=== PATIENT | female | born 1995 | race Asian ===

== ENCOUNTER 2018-12-02 12:13 | Emergency (ER) | payer OTHER ==
[~2018-12-02] VITALS: Ht 157.5 cm; Wt 70.3 kg
[2018-12-02 13:12] LABS: POTASSIUM 3.3 mmol/L (3.6-5.2)
[2018-12-02 13:18] LABS: PLATELET COUNT 189 K/uL (152-353)
[2018-12-02 16:10] VITALS: BP 108/62; TEMP 98.2
== END 2018-12-02 16:10 | disposition home or self-care (01) ==
LOC: ED 12:13
PROVIDERS: Emergency Medicine
DX: E16.1 Other hypoglycemia (principal); Z33.1 Pregnant state, incidental
CPT/HCPCS: 36415; 80053; 81000; 82962; 85027; 93005; 96365; 96375; 96376; 99284; J7060

== ENCOUNTER 2020-01-13 21:03 | Emergency (ER) | payer OTHER ==
[~2020-01-13] VITALS: Ht 157.5 cm; Wt 56.2 kg
[2020-01-13 21:54] LABS: POTASSIUM 3.2 mmol/L (3.6-5.2)
[2020-01-13 22:01] LABS: PLATELET COUNT 253 K/uL (152-353)
[2020-01-13 22:53] VITALS: BP 100/61; TEMP 97.8
== END 2020-01-13 22:53 | disposition home or self-care (01) ==
LOC: ED 21:03
PROVIDERS: Family Medicine
DX: A08.39 Other viral enteritis (principal)
CPT/HCPCS: 36415; 80053; 82150; 83690; 85027; 96360; 96375; 99284; J2405

== ENCOUNTER 2020-03-27 08:21 | Emergency (ER) | payer OTHER ==
[~2020-03-27] VITALS: Ht 157.5 cm; Wt 60.4 kg
[2020-03-27 08:31] VITALS: TEMP 96.3
[2020-03-27 09:12] LABS: POTASSIUM 3.4 mmol/L (3.6-5.2)
[2020-03-27 09:39] LABS: PLATELET COUNT 318 K/uL (152-353)
[2020-03-27 13:00] VITALS: BP 101/58
== END 2020-03-27 13:25 | disposition home or self-care (01) ==
LOC: ED 08:21
PROVIDERS: Emergency Medicine Emergency Medical Services
DX: O21.9 Vomiting of pregnancy, unspecified (principal); R19.7 Diarrhea, unspecified; Z3A.01 Less than 8 weeks gestation of pregnancy
CPT/HCPCS: 36415; 80053; 81000; 81025; 83690; 84702; 85027; 96360; 96375; 99284; J2405